=== PATIENT | female | born 1985 | race Caucasian/White ===

== ENCOUNTER 2022-09-20 23:15 | Emergency (ER) | payer SELFPAY ==
[~2022-09-20] VITALS: Ht 162.6 cm; Wt 75.0 kg
[2022-09-20] MEDS: SODIUM CHLORIDE 0.9% 1,000 ML IV ONE (23:45)
[2022-09-21 00:29] LABS: HEMATOCRIT. 36.8 % (36.0-48.0); HEMOGLOBIN. 12.7 g/dL (12.0-16.0); MEAN CORPUSCULAR HEMOGLOBIN 32.4 pg (28.0-32.0); MEAN CORPUSCULAR VOLUME 94.1 fL (81.0-99.0); MEAN PLATELET VOLUME 9.4 fl (7.4-10.4); PLATELET 222 x1000/uL (130-400); RED BLOOD CELL COUNT 3.91 mill/uL (4.2-5.4); RED CELL DISTRIBUTION WIDTH 13.5 % (11.6-14.6)
[2022-09-21 00:36] LABS: CHLORIDE 103 mEq/L (98-107)
[2022-09-21] MEDS: ONDANSETRON 4MG ODT PO ONE (00:59)
[2022-09-21] MEDS ORDERED: FAMO-135 MT (03:43)
[2022-09-21] MEDS ORDERED: ONDA4TAB11 PO (03:43)
[2022-09-21 04:40] VITALS: BP 126/77
[2022-09-21 07:22] LABS: PLATELET ESTIMATE NORMAL
== END 2022-09-21 04:44 | disposition home or self-care (01) ==
LOC: ER 23:15
DX: O21.9 Vomiting of pregnancy, unspecified (principal); Z3A.18 18 weeks gestation of pregnancy
CPT/HCPCS: 36415; 76815; 80048; 81025; 85025; 99284; J7030; Q0162